=== PATIENT | male | born 1990 | race Hispanic/Latino ===

== ENCOUNTER 2023-03-23 14:59 | Emergency (ER) | payer SELFPAY ==
[2023-03-23] MEDS ORDERED: Famotidine/PF 20 mg/2ml Vial ONE (15:38)
== END 2023-03-23 16:43 | disposition home or self-care (01) ==
LOC: MADERS 14:59
DX: T78.2XXA Anaphylactic shock, unspecified, initial encounter (principal); F17.210 Nicotine dependence, cigarettes, uncomplicated
CPT/HCPCS: 96374; S0028